=== PATIENT | female | born 1975 | race Caucasian/White ===

== ENCOUNTER 2017-11-26 14:21 | Emergency (ER) | payer OTHER ==
[~2017-11-26] VITALS: Ht 175.3 cm; Wt 119.3 kg
--- NOTE | 2017-11-26 14:21 | NUR ---
PT BIBA TO ER BED 04
[2017-11-26 14:24] VITALS: BP 145/82
[2017-11-26] MEDS ORDERED: MONT10TA35 PO (14:45)
[2017-11-26] MEDS ORDERED: [UNRECOGNIZED DRUG - CODE] PO (14:45)
[2017-11-26] MEDS ORDERED: SYN.05 PO (14:45)
[2017-11-26] MEDS ORDERED: SLOMAG PO (14:45)
[2017-11-26] MEDS ORDERED: ATI.5 PO (14:45)
[2017-11-26] MEDS ORDERED: PREG225C PO (14:45)
[2017-11-26] MEDS ORDERED: POTA10TE30 PO (14:45)
[2017-11-26] MEDS ORDERED: LOSA100T25 PO (14:45)
[2017-11-26] MEDS ORDERED: LISD20CA PO (14:45)
[2017-11-26] MEDS ORDERED: GLU500 PO (14:45)
[2017-11-26] MEDS ORDERED: OMEP20TC12 PO (14:45)
[2017-11-26] MEDS ORDERED: ALBU0.0912 INH (14:45)
[2017-11-26] MEDS ORDERED: TRAM50TA1 PO (14:45)
[2017-11-26] MEDS ORDERED: ESCI20TA PO (14:45)
[2017-11-26] MEDS ORDERED: FURO-572 PO (14:45)
[2017-11-26] MEDS ORDERED: ATOR20TA PO (14:45)
[2017-11-26] MEDS ORDERED: METH500T14 PO (14:45)
[2017-11-26] MEDS ORDERED: FERR325E14 PO (14:45)
[2017-11-26] MEDS ORDERED: TOPI50TA PO (14:45)
--- NOTE | 2017-11-26 14:45 | NUR ---
patient came in with right chest pain/burning to the breast area, and travels up to the neck and ears and to the posterior part of the shoulders. it is painful/campuzano to touch. she has had pain and burning for 3 weeks and has progressively gotten worse over time. patient has a history of fibromyalsia, asthma, hypothyroid, complex migraines, depression and anxiety.
--- NOTE | 2017-11-26 15:15 | NUR ---
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
--- NOTE | 2017-11-26 15:16 | NUR ---
Patient being evaluated by physician at bedside.
[2017-11-26 15:36] LABS: BARBITURATE, URINE NEG. ng/ml (NEG <=200); BENZODIAZEPINE, URINE NEG. ng/mL (NEG <=200); CANNABINOID, URINE POS. ng/mL (NEG <=50); COCAINE, URINE NEG. ng/mL (NEG <=300); OPIATE, URINE NEG. ng/mL (NEG <=2000); PHENCYCLIDINE SCREEN,URINE NEG. ng/mL (NEG <=25)
[2017-11-26 17:09] VITALS: BP 121/70
--- NOTE | 2017-11-26 17:10 | NUR ---
Patient discharged with v/s stable. Written and verbal after care instructions given and explained. Patient alert, oriented and verbalized understanding of instructions. Ambulatory with steady gait. All questions addressed prior to discharge. ID band removed. Patient advised to follow up with PMD. Rx of lidoderm given. Patient educated on indication of medication including possible reaction and side effects. Opportunity to ask questions provided and answered. patient was accompanied by her mom.
== END 2017-11-26 17:10 | disposition home or self-care (01) ==
LOC: MED 14:21
DX: F15.10 Other stimulant abuse, uncomplicated (principal); Z88.8 Allergy status to other drugs, medicaments and biological substances; Z79.899 Other long term (current) drug therapy; M79.7 Fibromyalgia
CPT/HCPCS: 80305; 99283

== ENCOUNTER 2021-04-24 09:35 | Day surgery (SDC) | payer OTHER, SELFPAY ==
[~2021-04-24] VITALS: Ht 175.3 cm; Wt 116.1 kg
[~2021-04-24 09:35] MED LIST: ALBU0.0912 INH; ATI.5 PO; ATOR20TA PO; ESCI20TA PO; FERR325E14 PO; FURO-572 PO; GLU500 PO; LISD20CA PO; LOSA100T51 PO; METH-1681 PO; MONT10TA35 PO; OMEP-278 PO; POTA10TA70 PO; PREG225C PO; SLOMAG PO; SYN.05 PO; TOPI50TA PO; TRAM50TA1 PO; [UNRECOGNIZED DRUG - CODE] PO
[2021-04-24] MEDS ORDERED: LIDOCAINE 2% 100 MG/5 ML UJET TP ONE ×2 (12:26→13:20)
[2021-04-24] MEDS ORDERED: fentaNYL citrate 0.05 MG/ML VIAL ONE (12:26)
[2021-04-24] MEDS ORDERED: MIDAZOLAM 5 MG/5 ML VIAL ONE (12:26)
[2021-04-24] MEDS ORDERED: diphenhydrAMINE 50 MG/ML VIAL ONE (12:26)
[2021-04-24] MEDS ORDERED: MIDAZOLAM 2 MG/2 ML VIAL IVP ONE (13:20)
[2021-04-24] MEDS ORDERED: fentaNYL citrate 0.05 MG/ML VIAL IVP ONE (13:20)
== END 2021-04-24 13:19 | disposition home or self-care (01) ==
LOC: MMU 09:35 → MDS 09:35
PROVIDERS: ATTEND Internal Medicine Gastroenterology
DX: K52.9 Noninfective gastroenteritis and colitis, unspecified (principal); K57.30 Diverticulosis of large intestine without perforation or abscess without bleeding; I10 Essential (primary) hypertension; M79.7 Fibromyalgia; G43.909 Migraine, unspecified, not intractable, without status migrainosus; E78.5 Hyperlipidemia, unspecified; Z90.710 Acquired absence of both cervix and uterus; Z98.1 Arthrodesis status; Z90.89 Acquired absence of other organs; Z79.899 Other long term (current) drug therapy; Z20.822 Contact with and (suspected) exposure to COVID-19
CPT/HCPCS: 45380; 87426; J1200; J2250; J3010; J7030